=== PATIENT | male | born 1970 | race Caucasian/White ===

== ENCOUNTER 2019-01-20 12:26 | Emergency (ER) | payer BC ==
[~2019-01-20] VITALS: Ht 185.4 cm; Wt 99.2 kg
[2019-01-20] MEDS ORDERED: PLEASE ENTER ALLERGIES MC SCH (13:00)
[2019-01-20] MEDS ORDERED: PLEASE ENTER HEIGHT AND WEIGHT MC SCH (13:00)
[2019-01-20] MEDS ORDERED: HYDROcodone/APAP 10/325 MG TABLET PO ONE (13:00)
--- NOTE | 2019-01-20 13:33 | NUR ---
Pt to room from lobby.
--- NOTE | 2019-01-20 13:49 | NUR ---
BREAK RN: DR ANDREWS AT BEDSIDE TO [facility] PT.
[2019-01-20] MEDS ORDERED: ONDANSETRON 2MG/ML, 2ML IVPush ONE (14:00)
[2019-01-20] MEDS ORDERED: MORPHINE SULFATE 4 MG/ML, 1ML IVPush PRN (14:00)
[2019-01-20] MEDS ORDERED: SODIUM CHLORIDE FLUSH 10ML SYR IVF ONE (14:00)
[2019-01-20] MEDS ORDERED: ONDANSETRON 2MG/ML, 2ML ONE (14:03)
[2019-01-20] MEDS ORDERED: MORPHINE SULFATE 4 MG/ML, 1ML ONE (14:03)
--- NOTE | 2019-01-20 14:10 | NUR ---
PT MEDICATED FOR 8/10 PAIN ORDERED. REPORT TO FELECIA ALEXANDRA
[2019-01-20 14:16] LABS: BASOPHILS # (AUTO) 0.04 x10^3/uL (0-0.1); BASOPHILS % (AUTO) 0 % (0-1); EOSINOPHILS # (AUTO) 0.28 x10^3/uL (0-0.4); EOSINOPHILS % (AUTO) 3 % (1-7); LYMPHOCYTES # (AUTO) 2.12 x10^3/uL (1-3.4); LYMPHOCYTES % (AUTO) 24 % (22-44); MD NO; MEAN CORPUSCULAR HEMOGLOBIN 30.5 pg (27.5-34.5); MEAN CORPUSCULAR HGB CONC 34.1 g/dL (33.2-36.2); MEAN CORPUSCULAR VOLUME 89.6 fL (81-97); MEAN PLATELET VOLUME 8.7 fL (7.4-10.4); MONOCYTES # (AUTO) 0.75 x10^3/uL (0.2-0.8); MONOCYTES % (AUTO) 9 % (2-9); NEUTROPHILS # (AUTO) 5.54 x10^3/uL (1.8-6.8); NEUTROPHILS % (AUTO) 63 % (42-75); PLATELET COUNT 227 x10^3/uL (130-400); RED BLOOD COUNT 5.68 x10^6/uL (4.38-5.82); RED CELL DISTRIBUTION WIDTH 14.1 % (9.4-14.8)
[2019-01-20 14:18] LABS: ALANINE AMINOTRANSFERASE 40 U/L (12-78); ALBUMIN 4.2 g/dL (3.4-5.0); ANION GAP 7 mmol/L (5-15); CALCIUM 8.7 mg/dL (8.5-10.1); CHLORIDE 113 mmol/L (98-107); CREATININE 1.06 mg/dL (0.7-1.3)
[2019-01-20 14:20] LABS: ALKALINE PHOSPHATASE 75 U/L (45-117); BILIRUBIN,TOTAL 0.3 mg/dL (0.2-1.0); TOTAL PROTEIN 7.1 g/dL (6.4-8.2)
[2019-01-20 15:42] LABS: MICROSCOPIC NOT IND
[2019-01-20 15:45] VITALS: BP 129/82
[2019-01-20 15:49] LABS: CULTURE INDICATED? NO
--- NOTE | 2019-01-20 18:15 | NUR ---
Patient/Caregiver given discharge instructions and they have confirmed that they understand the instructions. Patient ambulatory with steady gait.
== END 2019-01-20 18:15 | disposition home or self-care (01) ==
LOC: ED 15:18
DX: R10.31 Right lower quadrant pain (principal); R10.30 Lower abdominal pain, unspecified
CPT/HCPCS: 36415; 74177; 80053; 81003; 83690; 85025; 96374; 96375; 99284; J2405